=== PATIENT | male | born 1950 | race Caucasian/White ===

== ENCOUNTER 2018-04-27 22:27 | Emergency (ER) | payer MEDICARE, OTHER ==
--- NOTE | 2018-04-27 23:01 | EDM.PDOC ---
ED HPI GENERAL MEDICAL PROBLEM - General Chief Complaint: Lower Extremity Injury/Pain Stated Complaint: left foot injury Time Seen by Provider: 04/27/18 22:45 Source of Information: Reports: Patient History Limitations: Reports: No Limitations - History of Present Illness INITIAL COMMENTS - FREE TEXT/NARRATIVE: 67 YO WM presents to ER complaining of left foot pain after injuring his foot when a cow fell on him. Pt reports he was wearing rubber boots at the time. Pt reports he felt pain immediately but was able to weight bear on the left leg and ambulate with moderate pain. Pt with swelling and bruising to foot. Pt denies any ankle or leg pain. Pt denies any other injury. 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 - Related Data Allergies Allergy/AdvReac Type Severity Reaction Status Date / Time morphine Allergy Nausea and Verified 01/07/18 08:56 Vomiting Home Meds: Home Meds Fish Oil/[place]-3 Fatty Acids [Fish Oil 1,000 MG] 1,000 mg PO DAILY 01/07/18 [ History] Lutein/Minerals/Vit A,C & E [Ocuvite] 1 tab PO DAILY 01/07/18 [History] Glucosamine/D3/Boswellia Anuradha [Osteo Bi-Flex Tablet] 1 each PO DAILY 04/27/18 [ History] Past Medical History HEENT History: Reports: Glaucoma, Impaired Vision Genitourinary History: Reports: Renal Calculus Musculoskeletal History: Reports: Arthritis - Infectious Disease History Infectious Disease History: Reports: Chicken Pox, Measles, Mumps - Past Surgical History HEENT Surgical History: Reports: Adenoidectomy, Naso-Sinus Surgery, Tonsillectomy GI Surgical History: Reports: Appendectomy Musculoskeletal Surgical History: Reports: Other (See Below) Other Musculoskeletal Surgeries/Procedures:: knee surgery in 1970 Social & Family History - Family History Family Medical History: Noncontributory - Tobacco Use Smoking Status *Q: Never Smoker Second Hand Smoke Exposure: No - Caffeine Use Caffeine Use: Reports: Soda - Recreational Drug Use Recreational Drug Use: No Review of Systems - Review of Systems Review Of Systems: See Below Constitutional: Reports: No Symptoms Eyes: Reports: No Symptoms Ears: Reports: No Symptoms Nose: Reports: No Symptoms Mouth/Throat: Reports: No Symptoms Respiratory: Reports: No Symptoms Cardiovascular: Reports: No Symptoms GI/Abdominal: Reports: No Symptoms Genitourinary: Reports: No Symptoms Musculoskeletal: Reports: Foot Pain Skin: Reports: Bruising Neurological: Reports: No Symptoms Psychiatric: Reports: No Symptoms ED EXAM, GENERAL - Physical Exam Exam: See Below Exam Limited By: No Limitations General Appearance: Alert, WD/WN, No Apparent Distress Nose: Normal Inspection, Normal Mucosa, No Blood Throat/Mouth: Normal Inspection, Normal Lips, Normal Teeth, Normal Gums, Normal Oropharynx, Normal Voice, No Airway Compromise Head: Atraumatic, Normocephalic Neck: Normal Inspection, Supple, Non-Tender, Full Range of Motion Respiratory/Chest: No Respiratory Distress, Lungs Clear, Normal Breath Sounds, No Accessory Muscle Use, Chest Non-Tender Cardiovascular: Normal Peripheral Pulses, Regular Rate, Rhythm, No Edema, No Gallop, No JVD, No Murmur, No Rub GI/Abdominal: Normal Bowel Sounds, Soft, Non-Tender, No Organomegaly, No Distention, No Abnormal Bruit, No Mass Back Exam: Normal Inspection, Full Range of Motion, NT Extremities: No Pedal Edema, Normal Capillary Refill, Other (pain, swelling, echymosis to left forefoot) Neurological: Alert, Oriented, CN II-XII Intact, Normal Cognition, Normal Gait, Normal Reflexes, No Motor/Sensory Deficits Psychiatric: Normal Affect, Normal Mood Course - Vital Signs Last Recorded V/S: Last Vital Signs Temp 36.8 C 04/27/18 22:34 Pulse 71 04/27/18 22:34 Resp 18 04/27/18 22:34 BP 144/82 H 04/27/18 22:34 Pulse Ox 95 04/27/18 22:34 - Orders/Labs/Meds Orders: Active Orders 24 hr Category Date Time Status Immobilizer [RC] ASDIRECTED Care 04/27/18 23:03 Ordered Ankle 2V Lt [CR] Stat Exams 04/27/18 22:40 Ordered Foot 2V Lt [CR] Stat Exams 04/27/18 22:39 Ordered - Radiology Interpretation Free Text/Narrative:: left ankle- NAD left foot- NAD Departure - Departure Time of Disposition: 23:10 Disposition: Home, Self-Care 01 Condition: Good Clinical Impression: Contusion of foot, left Qualifiers: Encounter type: initial encounter Qualified Code(s): S90.32XA - Contusion of left foot, initial encounter - Discharge Information Instructions: Foot Contusion Referrals: Mansi Cisneros MD [Physician] - Forms: ED Department Discharge Additional Instructions: 1. discharge home 2. rest/ice/elevation/immobilizer/crutches 3. motrin 600mg PO Q6 4. follow up with PCP for further evaluation and treatment 5. return to ER for worsening symptoms - My Orders Last 24 Hours: My Active Orders 04/27/18 22:39 Foot 2V Lt [CR] Stat 04/27/18 22:40 Ankle 2V Lt [CR] Stat 04/27/18 23:03 Immobilizer [RC] ASDIRECTED - Assessment/Plan Last 24 Hours: My Active Orders 04/27/18 22:39 Foot 2V Lt [CR] Stat 04/27/18 22:40 Ankle 2V Lt [CR] Stat 04/27/18 23:03 Immobilizer [RC] ASDIRECTED Assessment:: 1. left foot contusion Plan: 1. discharge home 2. rest/ice/elevation/immobilizer/crutches 3. motrin 600mg PO Q6 4. follow up with PCP for further evaluation and treatment 5. return to ER for worsening symptoms
--- NOTE | 2018-04-28 05:06 | CR ---
[id number] RAD/RAD Foot Left 2V; 7090-6000 RAD/RAD Ankle Left 2V Exam: RAD Ankle Left 2V, RAD Foot Left 2V Indication:INJURED BY COW Comparison: No prior imaging for comparison. Discussion: Bones are in normal alignment. Negative for fracture. Mild tibiotalar osteoarthritis. Vascular calcifications project over the soft tissues. Impression: No acute findings. Rubens Santos MD 04/28/18 0505 Thank you for allowing us to participate in the care of your patient.
== END 2018-04-27 23:30 | disposition home or self-care (01) ==
LOC: KA.ED 22:27
DX: S90.32XA Contusion of left foot, initial encounter (principal); Z88.5 Allergy status to narcotic agent; W01.0XXA Fall on same level from slipping, tripping and stumbling without subsequent striking against object, initial encounter
CPT/HCPCS: 73600-LT; 73620-LT; 99283; 99283-25

== ENCOUNTER 2019-12-01 22:23 | Emergency (ER) | payer MEDICARE, OTHER ==
--- NOTE | 2019-12-01 22:25 | EDM.PDOC ---
ED HPI GENERAL MEDICAL PROBLEM - General Chief Complaint: Chest Pain Stated Complaint: PAIN Time Seen by Provider: 12/01/19 22:24 Source of Information: Reports: Patient History Limitations: Reports: No Limitations - History of Present Illness INITIAL COMMENTS - FREE TEXT/NARRATIVE: Armando, 69-year-old male, presents with left side rib discomfort. 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 Today pain seems to be catching in nature with respiratory and movement, left posterior and anterior lower rib margins. States his daughter examined him and felt he had a displaced rib. Used oxycodone that he had leftover from a prescription for when he had renal lithiasis. States pain has improved since taking the medication but still feels a pressure with motion. Denies fever chills shortness of breath. 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 States rough roads bouncing in the cab and other contributing factors none of which are specific for the onset of pain or injury. Onset Date: 11/30/19 Duration: Day(s):, Colic, Getting Worse Location: Reports: Chest Quality: Reports: Pressure, Stabbing Severity: Moderate Improves with: Reports: Medication (oxycodone) Worsens with: Reports: Movement Context: Reports: Activity Associated Symptoms: Reports: No Other Symptoms Left Middle Back Pain Score (Numeric/FACES): 7 - Related Data Allergies Allergy/AdvReac Type Severity Reaction Status Date / Time morphine Allergy Nausea and Verified 12/01/19 22:25 Vomiting Home Meds: Home Meds Fish Oil/[place]-3 Fatty Acids [Fish Oil 1,000 MG] 1,000 mg PO DAILY 01/07/18 [History] Lutein/Minerals/Vit A,C & E [Ocuvite] 1 tab PO DAILY 01/07/18 [History] Glucosamine/D3/Boswellia Anuradha [Osteo Bi-Flex Tablet] 1 each PO DAILY 04/27/18 [History] lisinopriL [Lisinopril] 20 mg PO DAILY 12/01/19 [History] Past Medical History HEENT History: Reports: Glaucoma, Impaired Vision Cardiovascular History: Reports: Hypertension Genitourinary History: Reports: Renal Calculus Musculoskeletal History: Reports: Arthritis - Infectious Disease History Infectious Disease History: Reports: Chicken Pox, Measles, Mumps - Past Surgical History HEENT Surgical History: Reports: Adenoidectomy, Naso-Sinus Surgery, Tonsillectomy GI Surgical History: Reports: Appendectomy Musculoskeletal Surgical History: Reports: Other (See Below) Other Musculoskeletal Surgeries/Procedures:: knee surgery in 1969 Social & Family History - Family History Family Medical History: Noncontributory - Tobacco Use Tobacco Use Status *Q: Never Tobacco User Tobacco Use Within Last Twelve Months: No - Caffeine Use Caffeine Use: Reports: Soda ED ROS GENERAL - Review of Systems Review Of Systems: See Below Constitutional: Reports: No Symptoms HEENT: Reports: No Symptoms Respiratory: Reports: No Symptoms. Denies: Shortness of Breath Cardiovascular: Reports: Chest Pain (Rib/chest wall type pain), Other (Rib pain) Endocrine: Reports: No Symptoms GI/Abdominal: Reports: No Symptoms : Reports: No Symptoms Musculoskeletal: Reports: Other (Chest wall discomfort) Skin: Reports: No Symptoms Neurological: Reports: No Symptoms Psychiatric: Reports: No Symptoms Hematologic/Lymphatic: Reports: No Symptoms Immunologic: Reports: No Symptoms ED EXAM, GENERAL - Physical Exam Exam: See Below General Appearance: Alert, WD/WN, No Apparent Distress Ears: Normal External Exam, Normal Canal, Hearing Grossly Normal, Normal TMs Nose: Normal Inspection, Normal Mucosa, No Blood Throat/Mouth: Normal Inspection, Normal Lips, Normal Teeth, Normal Gums, Normal Oropharynx, Normal Voice, No Airway Compromise Head: Atraumatic, Normocephalic Neck: Normal Inspection, Supple, Non-Tender, Full Range of Motion Respiratory/Chest: No Respiratory Distress, Lungs Clear, Normal Breath Sounds, No Accessory Muscle Use. No: Chest Non-Tender (Tenderness is noted to the left posterior and also mild anterior lower rib margin. States he feels this with deep breath as well as positioning.) Cardiovascular: Normal Peripheral Pulses, Regular Rate, Rhythm, No Edema, No Gallop, No JVD, No Murmur, No Rub GI/Abdominal: Normal Bowel Sounds, Soft, Non-Tender, No Organomegaly, No Distention, No Abnormal Bruit, No Mass (Male) Exam: Deferred Rectal (Males) Exam: Deferred Back Exam: No: CVA Tenderness (L), CVA Tenderness (R), Paraspinal Tenderness Extremities: Normal Inspection, Normal Range of Motion, Non-Tender Neurological: Alert, Oriented, CN II-XII Intact, Normal Cognition, Normal Gait, Normal Reflexes, No Motor/Sensory Deficits Psychiatric: Normal Affect, Normal Mood Skin Exam: Warm, Dry, Intact, Normal Color, No Rash Course - Vital Signs Last Recorded V/S: Last Vital Signs Temp 36.4 C 12/01/19 22:25 Pulse 95 12/01/19 22:25 Resp 18 12/01/19 22:25 BP 129/89 12/01/19 22:25 Pulse Ox 91 L 12/01/19 22:25 - Orders/Labs/Meds Orders: Active Orders 24 hr Category Date Time Status Ribs 2V w Chest Lt [CR] Stat Exams 12/01/19 22:29 Ordered Meds: Medications Discontinued Medications Generic Name Dose Route Start Last Admin Trade Name Shobha PRN Reason Stop Dose Admin Ketorolac Tromethamine 60 mg 12/01/19 22:29 12/01/19 22:33 Toradol IM 12/01/19 22:30 60 mg ONETIME ONE Administration - Radiology Interpretation Free Text/Narrative:: Chest x-ray shows no evidence of hemo-/pneumothorax. Poor inspiration as would be expected secondary of his catching type pain on deep inspiration. I do not see any rib fracture or significant dislocation. Radiology over read is pending at this time. - Re-Assessments/Exams Free Text/Narrative Re-Assessment/Exam: 12/01/19 23:11 Significant improvement with the Toradol in conjunction with the oxycodone he had taken prior to his arrival. Discussed waiting for official radiology report which he declines states we can call if any abnormalities were found. Departure - Departure Time of Disposition: 23:04 Disposition: Home, Self-Care 01 Condition: Good Clinical Impression: Acute chest wall pain - Discharge Information *PRESCRIPTION DRUG MONITORING PROGRAM REVIEWED*: Not Applicable *COPY OF PRESCRIPTION DRUG MONITORING REPORT IN PATIENT LUPE: Not Applicable Instructions: Nonspecific Chest Pain, Adult, [id number] Referrals: Julianna Chase [facility] [facility] [Primary Care Provider] - Forms: ED Department Discharge Additional Instructions: I see no abnormality or fracture on your chest x-ray rib views. Continue taking your medication for pain as needed. The shot/injection that we gave you will last until tomorrow morning. Tomorrow you may take ibuprofen as well as oxycodone as needed. Contact your chiropractor in the morning for manipulation adjustment of the ribs. Take all of your regular medications as directed. Increase your water intake is much as possible. Heat and/or ice to the affected area may benefit, specifically heat to get the muscles to relax. You may take ibuprofen and/or Tylenol upon awakening. Call or return if severe pain develops limiting your ability for breathing causing shortness of breath or unbearable discomfort. Follow-up with your clinic as needed. Sepsis Event Note (ED) - Focused Exam Vital Signs: Vital Signs Temp Pulse Resp BP Pulse Ox 12/01/19 22:25 36.4 C 95 18 129/89 91 L - Problem List & Annotations (1) Acute chest wall pain SNOMED Code(s): 790780245, 912742472 Code(s): R07.89 - OTHER CHEST PAIN Status: Acute Priority: High Current Visit: Yes Onset Date: ~11/30/19 Annotation/Comment:: States is improved slightly with the use of oxycodone prior to his arrival. - Problem List Review Problem List Initiated/Reviewed/Updated: Yes - My Orders Last 24 Hours: My Active Orders 12/01/19 22:29 Ribs 2V w Chest Lt [CR] Stat - Assessment/Plan Last 24 Hours: My Active Orders 12/01/19 22:29 Ribs 2V w Chest Lt [CR] Stat Plan: I see no abnormality or fracture on your chest x-ray rib views. Continue taking your medication for pain as needed. The shot/injection that we gave you will last until tomorrow morning. Tomorrow you may take ibuprofen as well as oxycodone as needed. Contact your chiropractor in the morning for manipulation adjustment of the ribs. Take all of your regular medications as directed. Increase your water intake is much as possible. Heat and/or ice to the affected area may benefit, specifically heat to get the muscles to relax. You may take ibuprofen and/or Tylenol upon awakening. Call or return if severe pain develops limiting your ability for breathing causing shortness of breath or unbearable discomfort. Follow-up with your clinic as needed.
[2019-12-01] MEDS ORDERED: Ketorolac 60 MG/2 ML SDV IM ONE (22:29)
--- NOTE | 2019-12-02 09:01 | CR ---
[id number] RAD/RAD Ribs Left W PA Chest Exam: Left rib series Clinical Data: LEFT RIB PAIN COMPARISON: NO PREVIOUS SIMILAR EXAM IS AVAILABLE FINDINGS: No fractures are seen There is bibasilar discoid atelectasis There is minimal pleural reaction on the left There is no infiltrate otherwise The cardiac silhouette is enlarged The aorta is tortuous The mediastinum is prominent IMPRESSION: NO RECENT RIB FRACTURES BIBASILAR DISCOID ATELECTASIS PROMINENT MEDIASTINUM CONSIDER FOLLOW-UP STUDIES Morales Hansen MD 12/02/19 0900 Thank you for allowing us to participate in the care of your patient.
== END 2019-12-01 23:10 | disposition home or self-care (01) ==
LOC: KA.ED 22:23
DX: R07.89 Other chest pain (principal); I10 Essential (primary) hypertension; Z88.5 Allergy status to narcotic agent; Z90.49 Acquired absence of other specified parts of digestive tract; Z79.899 Other long term (current) drug therapy
CPT/HCPCS: 71101-LT; 96372; 99283; 99284; J1885

== ENCOUNTER 2020-03-17 16:50 | Observation (INO) | payer MEDICARE, OTHER ==
[2020-03-17] MEDS ORDERED: Heparin Sodium/D5W 250 ML IV SCH ×2 (17:15→18:01)
[2020-03-17] MEDS ORDERED: Acetaminophen 325 MG Tab PO PRN (17:24)
[2020-03-17] MEDS ORDERED: Sodium Chloride 0.9% 10 ML Syringe FLUSH PRN (17:24)
[2020-03-17] MEDS ORDERED: Heparin Sodium 5,000 Units/ML Vial IVPUSH ONE (18:50)
[2020-03-18] MEDS ORDERED: Lisinopril 20 MG Tab PO SCH (09:00)
--- NOTE | 2020-03-19 00:30 | PCM.DCSUM1 ---
Discharge Summary - Hospital Course Free Text/Narrative:: Date of admission: 03/17/20 Date of discharge: 03/18/20 Admission diagnoses: # DVT, RLE # Leukocytosis # HTN Discharge diagnoses: # DVT, RLE # Leukocytosis # HTN Hospital course: Mr. Jackman is a 69yoM with a history of HTN who developed RLE swelling and pain on 03/15/20. He remembered taking a "funny step" on 03/13/20, but continued to be active and without any pain until over 2 days later. He was evaluated at [facility] by SANTA Garibay, and found to have extensive DVT of the RLE. Had no other history fitting with a DVT provoking event and hypercoagulable workup obtained. Due to extensive clot burden, he was admitted for close observation and placed on heparin anticoagulation. He declined need for any analgesics for pain management, developed no evidence of infection, and felt comfortable going home on the day of discharge. Discussed underlying etiology differential diagnosis and management for unprovoked DVTs, for which he agreed to initiate anticoagulation with rivaroxaban for which risks and benefits were discussed; specifically discussed the need for avoidance of NSAIDs when on anticoagulation. Discussed at length conservative measures for treatment as well as return precautions for any cardiorespiratory symptoms. Discharge and follow-up recommendations: - Discharge to home - Medication changes at discharge: - Start rivaroxaban 15mg BID x21 days, and then 20mg daily - Follow-up with PCP SANTA Moreno at [facility] in 7-9 days - Recommend recheck of CBC at follow-up - Consider referral to hematology for evaluation and opinion regarding length of anticoagulation - Pending results: hypercoagulable labs in [place] chart - Discharge Data Discharge Date: 03/18/20 Discharge Disposition: Home, Self-Care 01 Condition: Good - Referral to Home Health Primary Care Physician: Julianna Chase NP - Patient Instructions Diet: Usual Diet as Tolerated Activity: As Tolerated, Elevate Extremity Notify Provider of: Fever, Increased Pain, Swelling and Redness - Discharge Plan *PRESCRIPTION DRUG MONITORING PROGRAM REVIEWED*: Not Applicable *COPY OF PRESCRIPTION DRUG MONITORING REPORT IN PATIENT LUPE: Not Applicable Prescriptions/Med Rec: Rivaroxaban [Xarelto] 1 each PO BID 21 Days tab.ds.pk Home Medications: Home Meds Fish Oil/[place]-3 Fatty Acids [Fish Oil 1,000 MG] 1,000 mg PO BID 01/07/18 [History] Glucosamine/D3/Boswellia Anuradha [Osteo Bi-Flex Tablet] 1 each PO BID 04/27/18 [History] lisinopriL [Lisinopril] 20 mg PO DAILY 12/01/19 [History] Fluticasone Propionate [Flonase] 1 spray NASBOTH BID PRN 03/17/20 [History] Multivitamin with Minerals [Multivitamins with Minerals] 1 tab PO BID 03/17/20 [History] Acetaminophen [Tylenol] 650 mg PO Q4H PRN tablet 03/18/20 [Rx] Rivaroxaban [Xarelto] 1 each PO BID 21 Days tab.ds.pk 03/18/20 [Rx] Patient Handouts: Deep Vein Thrombosis Referrals: Julianna Chase [facility] [Primary Care Provider] - 03/26/20 2:00 pm - Discharge Summary/Plan Comment DC Time >30 min.: Yes - General Info Subjective Update: Overall feeling well. RLE with pain upon initial ambulation, but then improves. Elevation and compression has helped. Denies any cardiorespiratory symptoms. Eating, voiding, and stooling without difficulty. Desires discharge. - Patient Data Vitals - Most Recent: Last Vital Signs Temp 37.2 C 03/18/20 10:56 Pulse 82 03/18/20 12:11 Resp 16 03/18/20 10:56 BP 109/71 03/18/20 10:56 Pulse Ox 95 03/18/20 12:11 Weight - Most Recent: 80.921 kg I&O - Last 24 hours: Intake & Output 03/18/20 03/18/20 03/19/20 14:59 22:59 06:59 Intake Total 481 Balance 481 Lab Results - Last 24 hrs: Laboratory Results - last 24 hr 03/17/20 03/17/20 03/18/20 Range/Units 11:56 18:00 06:30 APTT 69.1 H* 29.1 D 69.7 H* D (22.8-31.4) SEC Med Orders - Current: Current Medications Discontinued Medications Acetaminophen (Tylenol) 650 mg PO Q4H PRN PRN Reason: Pain (Mild 1-3)/fever Last Admin: 03/18/20 01:04 Dose: 650 mg Documented by: Heparin Sodium (Porcine) (Heparin Sodium) 5,000 units IVPUSH ONETIME ONE Stop: 03/17/20 18:51 Last Admin: 03/17/20 17:50 Dose: 5,000 units Documented by: Heparin Sodium/Dextrose () 250 mls @ 0 mls/hr IV TITRATE GERMAN; Protocol Heparin Sodium/Dextrose () 250 mls @ 13 mls/hr IV TITRATE GERMAN; Protocol Last Admin: 03/17/20 18:45 Dose: 1,300 units/hr, 13 mls/hr Documented by: Lisinopril (Prinivil) 20 mg PO DAILY [facility] Last Admin: 03/18/20 08:12 Dose: 20 mg Documented by: Sodium Chloride (Saline Flush) 10 ml FLUSH Q8HR PRN PRN Reason: keep vein open - Exam Physical Findings Comments:: GENERAL: Well-appearing male sitting in bedside chair in no acute distress. HEENT: Normocephalic, atraumatic. Conjunctiva clear. NECK: Supple, no masses. CV: Regular rate and rhythm, no murmurs, rubs, or gallops. 2+ radial, DP/PT pulses. PULMONARY: Normal effort, clear to auscultation bilaterally, no wheezes, rales, or rhonchi. ABDOMEN: Positive bowel sounds, soft, nontender, nondistended. EXTREMITIES: RLE with mild edema of the leg and distal thigh without skin breakdown or rash but with tenderness to palpation especially of the calf. MUSCULOSKELETAL: Moves all extremities well. NEUROLOGICAL: No obvious deficits. DERMATOLOGIC: No rashes or suspicious lesions in exposed areas. PSYCHIATRIC: Alert, interactive, appropriate affect.
== END 2020-03-18 13:30 | disposition home or self-care (01) ==
LOC: KA.MS 17:20
PROVIDERS: ADMIT Nurse Practitioner Family; ATTEND Family Medicine
DX: I82.401 Acute embolism and thrombosis of unspecified deep veins of right lower extremity (principal); D72.829 Elevated white blood cell count, unspecified; I10 Essential (primary) hypertension; Z79.899 Other long term (current) drug therapy; Z88.5 Allergy status to narcotic agent; Z20.822 Contact with and (suspected) exposure to COVID-19
CPT/HCPCS: 36415; 85730; 96365; 96366; 96375; A9270-GY; G0378; J1644; U0002

== ENCOUNTER 2020-12-26 14:45 | Emergency (ER) | payer MEDICARE, OTHER ==
[2020-12-26] MEDS ORDERED: Ketorolac 30 MG/ML SDV ONE (15:49)
[2020-12-26] MEDS ORDERED: Ketorolac 30 MG/ML SDV IVPUSH ONE (16:05)
--- NOTE | 2020-12-26 16:48 | EDM.PDOC ---
ED HPI GENERAL MEDICAL PROBLEM - General Chief Complaint: General Stated Complaint: back pain Time Seen by Provider: 12/26/20 15:23 Source of Information: Reports: Patient, Family (dtr) History Limitations: Reports: No Limitations - History of Present Illness INITIAL COMMENTS - FREE TEXT/NARRATIVE: Patient presents with right flank pain extending to RLQ and right testicle. He says it feels like a kidney stone he had 3 years ago. Pain was 8-9/10 and he took an oxycodone he had left over; pain is now 6/10. Right Flank Pain Score (Numeric/FACES): 8 - Related Data Allergies Allergy/AdvReac Type Severity Reaction Status Date / Time morphine Allergy Nausea and Verified 03/17/20 17:42 Vomiting Home Meds: Home Meds Fish Oil/Ubly-3 Fatty Acids [Fish Oil 1,000 MG] 1,000 mg PO BID 01/07/18 [History] Glucosamine/D3/Boswellia Anuradha [Osteo Bi-Flex Tablet] 1 each PO BID 04/27/18 [History] lisinopriL [Lisinopril] 20 mg PO DAILY 12/01/19 [History] Fluticasone Propionate [Flonase] 1 spray NASBOTH BID PRN 03/17/20 [History] Multivitamin with Minerals [Multivitamins with Minerals] 1 tab PO BID 03/17/20 [History] Acetaminophen [Tylenol] 650 mg PO Q4H PRN tablet 03/18/20 [Rx] Past Medical History HEENT History: Reports: Glaucoma, Impaired Vision Cardiovascular History: Reports: Hypertension Genitourinary History: Reports: Renal Calculus Musculoskeletal History: Reports: Arthritis - Infectious Disease History Infectious Disease History: Reports: Chicken Pox, Measles, Mumps - Past Surgical History HEENT Surgical History: Reports: Adenoidectomy, Naso-Sinus Surgery, Tonsillectomy GI Surgical History: Reports: Appendectomy Musculoskeletal Surgical History: Reports: Other (See Below) Other Musculoskeletal Surgeries/Procedures:: knee surgery in 1970 Social & Family History - Family History Family Medical History: No Pertinent Family History - Tobacco Use Tobacco Use Status *Q: Never Tobacco User Second Hand Smoke Exposure: No - Caffeine Use Caffeine Use: Reports: Soda - Recreational Drug Use Recreational Drug Use: No ED ROS GENERAL - Review of Systems Review Of Systems: See Below Constitutional: Denies: Fever, Chills, Malaise, Weakness HEENT: Denies: Ear Pain, Throat Pain, Vision Change Respiratory: Denies: Shortness of Breath, Cough Cardiovascular: Denies: Chest Pain, Lightheadedness, Syncope Endocrine: Denies: Fatigue GI/Abdominal: Reports: Abdominal Pain. Denies: Constipation, Diarrhea, Vomiting : Denies: Dysuria, Flank Pain, Hematuria Musculoskeletal: Denies: Neck Pain, Shoulder Pain, Arm Pain Skin: Denies: Cyanosis, Jaundice, Mottled, Pallor, Diaphoresis Neurological: Denies: Confusion, Dizziness, Headache, Seizure, Syncope, Trouble Speaking, Difficulty Walking Psychiatric: Denies: Agitation, Anxiety, Confusion ED EXAM, GENERAL - Physical Exam Exam: See Below Exam Limited By: No Limitations General Appearance: Alert, WD/WN, No Apparent Distress Eye Exam: Bilateral Eye: EOMI, Normal Inspection, PERRL Ears: Normal External Exam, Hearing Grossly Normal Nose: Normal Inspection, No Blood Throat/Mouth: Normal Inspection, Normal Lips, Normal Voice, No Airway Compromise Head: Atraumatic, Normocephalic Neck: Normal Inspection, Full Range of Motion Respiratory/Chest: No Respiratory Distress, Lungs Clear, Normal Breath Sounds, No Accessory Muscle Use Cardiovascular: Regular Rate, Rhythm, No Murmur GI/Abdominal: Soft, No Organomegaly, No Distention, Tender (RUQ). No: Guarding, Rigid Back Exam: Normal Inspection, Full Range of Motion, CVA Tenderness (R). No: CVA Tenderness (L) Extremities: Normal Inspection, Normal Range of Motion Neurological: Alert, Oriented, Normal Cognition, No Motor/Sensory Deficits Psychiatric: Normal Affect, Normal Mood Skin Exam: Warm, Dry, Intact, Normal Color, No Rash Course - Vital Signs Last Recorded V/S: Last Vital Signs Temp 97.8 F 12/26/20 16:29 Pulse 73 12/26/20 16:29 Resp 22 H 12/26/20 16:29 BP 148/99 H 12/26/20 16:29 Pulse Ox 96 12/26/20 16:29 - Orders/Labs/Meds Labs: Laboratory Tests 12/26/20 12/26/20 12/26/20 Range/Units 15:45 16:33 16:33 WBC 9.92 (5.00-10.00) 10^3/uL RBC 5.47 (4.50-6.00) 10^6/uL Hgb 15.5 (13.0-17.0) g/dL Hct 47.0 (40.0-52.0) % MCV 85.9 (82.0-92.0) fL MCH 28.3 (27.0-31.0) pg MCHC 33.0 (32.0-36.0) g/dL RDW 13.4 (11.5-14.5) % Plt Count 216 (150-400) 10^3/uL MPV 10.8 H (7.4-10.4) fL Immature Gran % (Auto) 0.2 (0.0-5.0) % Neut % (Auto) 79.2 H (50.0-70.0) % Lymph % (Auto) 12.1 L (20.0-40.0) % Cedar % (Auto) 7.1 (2.0-8.0) % Eos % (Auto) 0.9 L (1.0-3.0) % Baso % (Auto) 0.5 (0.0-1.0) % Neut # (Auto) 7.86 H (2.50-7.00) 10^3/uL Lymph # (Auto) 1.20 (1.00-4.00) 10^3/uL Cedar # (Auto) 0.70 (0.10-0.80) 10^3/uL Eos # (Auto) 0.09 L (0.10-0.30) 10^3/uL Baso # (Auto) 0.05 (0.00-0.10) 10^3/uL Immature Gran # (Auto) 0.02 (0.00-0.50) 10^3/uL Sodium 144 (136-145) mmol/L Potassium 4.0 (3.5-5.1) mmol/L Chloride 106 (98-107) mmol/L Carbon Dioxide 23.6 (21.0-32.0) mmol/L Anion Gap 18.4 H (5-15) mmol/L BUN 19 H (7-18) mg/dL Creatinine 1.45 H (0.51-1.17) mg/dL Est Cr Clr Drug Dosing 49.65 mL/min Estimated GFR (MDRD) 48 mL/min Glucose 113 (70-140) mg/dL Calcium 9.2 (8.7-10.3) mg/dL Total Bilirubin 0.5 (0.2-1.0) mg/dL AST 20 (15-37) U/L ALT 31 (14-63) U/L Alkaline Phosphatase 76 (46-116) U/L Total Protein 7.2 (6.4-8.2) g/dL Albumin 3.47 (3.40-5.00) g/dL Specimen Type Urinvoid Urine Color Yellow (YELLOW) Urine Appearance Clear (CLEAR) Urine pH 5.0 (5.0-9.0) Ur Specific Matthews >= 1.030 (1.005-1.030) Urine Protein Negative (NEGATIVE) mg/dL Urine Glucose (UA) Negative (NEGATIVE) mg/dL Urine Ketones Negative (NEGATIVE) mg/dL Urine Occult Blood Negative (NEGATIVE) Urine Nitrite Negative (NEGATIVE) Urine Bilirubin Negative (NEGATIVE) Urine Urobilinogen 0.2 (0.2-1.0) E.U./dL Ur Leukocyte Esterase Negative (NEGATIVE) Meds: Medications Discontinued Medications Generic Name Dose Route Start Last Admin Trade Name Freq PRN Reason Stop Dose Admin Ketorolac Tromethamine Confirm 12/26/20 15:49 12/26/20 16:23 Ketorolac 30 Mg/Ml Sdv Administered 12/26/20 15:50 Not Given Dose 30 mg .ROUTE .STK-MED ONE Ketorolac Tromethamine 30 mg 12/26/20 16:05 12/26/20 16:05 Ketorolac 30 Mg/Ml Sdv IVPUSH 12/26/20 16:06 30 mg ONETIME ONE Administration Tamsulosin HCl 0.8 mg 12/26/20 17:18 12/26/20 17:24 Tamsulosin 0.4 Mg Cap.Er PO 12/26/20 17:19 0.8 mg ONETIME ONE Administration - Re-Assessments/Exams Free Text/Narrative Re-Assessment/Exam: 12/26/20 17:25 CT shows 7 mm stone in right distal ureter, right hydronephrosis, as well as smaller nephrolithiasis on left. No blood in urine; UA normal. CBC and BMP normal. Discussed findings and treatment plan with patient. I feel this will likely pass since his last one was similar in size and passed fairly easily with the alpha chemo. I also discussed the parenchymal scar in the left lung base that has changed some since comparison in 2018 and should be recheck with PCP in 6 months. Small gallstone also. Pt discharged to home in stable condition. 12/26/20 17:32 Instructions were incorrect for Tamsulosin: I wrote .04 instead of 0.4 which is corrected with patient but I couldn't change it in the order. Departure - Departure Time of Disposition: 17:22 Disposition: Home, Self-Care 01 Condition: Good Clinical Impression: Ureteral calculus, right, Hydronephrosis concurrent with and due to calculi of kidney and ureter - Discharge Information Referrals: Julianna Chase PULMONARY CARE NURSE [Primary Care Provider] - Forms: ED Department Discharge Additional Instructions: Drink 8 cups of water daily. Take the Tamsulosin daily as directed. You can take Ibuprofen 600 mg three times daily as needed for pain. You can take Oxycodone for worse pain as directed. Follow up with your PCP in a week if nothing has improved or passed. If worsening, recheck in clinic or ER as needed. Sepsis Event Note (ED) - Evaluation Sepsis Screening Result: No Definite Risk - Focused Exam Vital Signs: Vital Signs Temp Pulse Resp BP Pulse Ox 12/26/20 16:29 97.8 F 73 22 H 148/99 H 96 12/26/20 15:09 97.5 F 74 22 H 146/95 H 94 L
[2020-12-26 17:04] LABS: ANION GAP 18.4 mmol/L (5-15)
[2020-12-26] MEDS ORDERED: Tamsulosin 0.4 MG Cap.ER PO ONE (17:18)
--- NOTE | 2020-12-28 10:04 | CT ---
[id number] CT/CT Abdomen Pelvis WO IV Exam: CT Abdomen Pelvis WO IV Clinical Data: FLANK PAIN COMPARISON: CORRELATION IS MADE WITH THE CAT SCAN OF JANUARY 07, 2018 FINDINGS: There is minimal parenchymal scar at the left lung base appearing different than the last exam Consider perhaps a 6 month follow-up limited plain CT chest A 7 mm radiopaque distal right ureteral calculus is seen This results in significant right-sided hydronephrosis There is minimal nephrolithiasis of the left kidney Previously the right ureteral calculus was in the right kidney. Additionally there appears to be a tiny gallstone. The liver and spleen, adrenals, aorta, and pancreas otherwise are unremarkable The pelvis shows no mass or adenopathy IMPRESSION: 7 MM OBSTRUCTING DISTAL RIGHT URETERAL CALCULUS MODERATE RIGHT-SIDED HYDRONEPHROSIS Morales Hansen MD 12/28/20 [id number] Thank you for allowing us to participate in the care of your patient.
== END 2020-12-26 17:42 | disposition home or self-care (01) ==
LOC: KA.ED 14:45
DX: N13.2 Hydronephrosis with renal and ureteral calculous obstruction (principal); I10 Essential (primary) hypertension; Z88.5 Allergy status to narcotic agent; Z79.899 Other long term (current) drug therapy
CPT/HCPCS: 36415; 74176; 80053; 81003; 85025; 96374; 99284-25; A9270-GY; J1885

== ENCOUNTER 2021-04-22 05:15 | Emergency (ER) | payer MEDICARE, OTHER ==
[2021-04-22] MEDS ORDERED: HYDROmorphone 1 MG/ML Syringe IVPUSH ONE ×3 (05:35→11:04)
[2021-04-22] MEDS ORDERED: Ondansetron 4 MG/2 ML SDV IVPUSH ONE (05:36)
[2021-04-22] MEDS ORDERED: Ondansetron 4 MG/2 ML SDV ONE (05:38)
[2021-04-22] MEDS ORDERED: LORazepam 2 MG/ML SDV IVPUSH ONE (08:31)
[2021-04-22] MEDS ORDERED: Midazolam 1 MG/ML 2 ML SDV IVPUSH ONE (08:44)
[2021-04-22] MEDS ORDERED: Lidocaine 1% 20 ML MDV ONE (09:12)
[2021-04-22] MEDS ORDERED: Lidocaine 1% 50 ML MDV INJECT ONE (09:21)
[2021-04-22] MEDS ORDERED: HYDROmorphone 1 MG/ML Syringe ONE (09:33)
[2021-04-22] MEDS: HYDROmorphone 1 MG/ML Syringe IVPUSH ONE ×2 (09:36→10:25)
== END 2021-04-22 11:15 ==
LOC: KA.ED 05:15
DX: S43.005A Unspecified dislocation of left shoulder joint, initial encounter (principal); I10 Essential (primary) hypertension; Z88.5 Allergy status to narcotic agent; Z79.899 Other long term (current) drug therapy; W01.0XXA Fall on same level from slipping, tripping and stumbling without subsequent striking against object, initial encounter
CPT/HCPCS: 73030-LT; 73070-LT; 96374; 96375; 96376; 99284; 99284-25; J1170; J2001; J2250; J2405

== ENCOUNTER 2022-09-24 19:24 | Emergency (ER) | payer MEDICARE, OTHER ==
[2022-09-24] MEDS ORDERED: HYDROmorphone 1 MG/ML Syringe ONE (19:41)
[2022-09-24] MEDS ORDERED: Sodium Chloride 0.9% 1,000 ML ONE ×2 (19:41→21:42)
[2022-09-24] MEDS ORDERED: Sodium Chloride 0.9% 1,000 ML IV ONE (19:45)
[2022-09-24] MEDS ORDERED: HYDROmorphone 1 MG/ML Syringe IVPUSH ONE ×3 (19:45→22:10)
[2022-09-24 19:54] LABS: BASOPHILS ABSOLUTE AUTO 0.02 10^3/uL (0.00-0.10); BASOPHILS PERCENT AUTO 0.2 % (0.0-1.0); EOSINOPHILS ABSOLUTE AUTO 0.06 10^3/uL (0.10-0.30); EOSINOPHILS PERCENT AUTO 0.5 % (1.0-3.0); HEMATOCRIT 47.5 % (40.0-52.0); IMMATURE GRAN ABSOLUTE AUTO 0.05 10^3/uL (0.00-0.50); IMMATURE GRAN PERCENT AUTO 0.4 % (0.0-5.0); LYMPHOCYTES ABSOLUTE AUTO 1.44 10^3/uL (1.00-4.00); LYMPHOCYTES PERCENT AUTO 11.7 % (20.0-40.0); MEAN CORPUSCULAR HEMOGLOBIN 29.1 pg (27.0-31.0); MEAN CORPUSCULAR HGB CONC 33.7 g/dL (32.0-36.0); MEAN CORPUSCULAR VOLUME 86.4 fL (82.0-92.0); MEAN PLATELET VOLUME 11.3 fL (7.4-10.4); MONOCYTES ABSOLUTE AUTO 0.96 10^3/uL (0.10-0.80); MONOCYTES PERCENT AUTO 7.8 % (2.0-8.0); NEUTROPHILS ABSOLUTE AUTO 9.74 10^3/uL (2.50-7.00); NEUTROPHILS PERCENT AUTO 79.4 % (50.0-70.0); PLATELET COUNT,PLT 188 10^3/uL (150-400); RED CELL DISTRIBUTION WIDTH 13.7 % (11.5-14.5); WHITE BLOOD CELL COUNT,WBC 12.27 10^3/uL (5.00-10.00)
[2022-09-24] MEDS ORDERED: Iopamidol 755 Mg/ML 100 ML Bottle IV ONE (19:58)
[2022-09-24] MEDS ORDERED: Sodium Chloride 0.9% 50 ML IV SCH (20:00)
[2022-09-24 20:21] LABS: APPEARANCE,URINE CLEAR (CLEAR); BILIRUBIN,URINE NEGATIVE (NEGATIVE); COLOR,URINE YELLOW (YELLOW); GLUCOSE,URINE NEGATIVE (NEGATIVE); KETONES,URINE NEGATIVE (NEGATIVE); LEUKOCYTE ESTERASE,URINE NEGATIVE (NEGATIVE); NITRITE,URINE NEGATIVE (NEGATIVE); OCCULT BLOOD,URINE SMALL (NEGATIVE); PROTEIN,URINE TRACE mg/dL (NEGATIVE); UROBILINOGEN,URINE 0.2 E.U./dL (0.2-1.0)
[2022-09-24 20:24] LABS: BACTERIA,URINE OCCASIONAL /HPF (NONE TO FEW); EPITHELIAL CELLS,URINE RARE /LPF; WBC,URINE 0-5 /HPF (0-5)
[2022-09-24 20:29] LABS: ALBUMIN 3.49 g/dL (3.40-5.00); ANION GAP 13.4 mmol/L (5-15); BILIRUBIN TOTAL 0.9 mg/dL (0.2-1.0); CALCIUM 8.7 mg/dL (8.7-10.3); CARBON DIOXIDE,CO2 29.7 mmol/L (21.0-32.0); CREATININE 1.68 mg/dL (0.51-1.17); EST CRCL DRUG DOSING (CG) 41.64 mL/min; POTASSIUM,K 5.1 mmol/L (3.5-5.1); PROTEIN TOTAL,TP 6.9 g/dL (6.4-8.2)
[2022-09-24] MEDS ORDERED: Ondansetron 4 MG/2 ML SDV ONE (20:58)
[2022-09-24] MEDS ORDERED: Ondansetron 4 MG/2 ML SDV IVPUSH ONE (21:01)
[2022-09-24] MEDS: HYDROmorphone 2 MG/ML Syringe ONE ×2 (21:01→21:44)
[2022-09-24] MEDS ORDERED: Sodium Chloride 0.9% 1,000 ML IV SCH (21:45)
[2022-09-24] MEDS ORDERED: Tamsulosin 0.4 MG Cap.ER ONE (22:03)
[2022-09-24] MEDS ORDERED: Tamsulosin 0.4 MG Cap.ER PO ONE (22:03)
[2022-09-24] MEDS ORDERED: HYDROmorphone 2 MG/ML Syringe ONE (22:13)
== END 2022-09-24 22:17 ==
LOC: KA.ED 19:24
DX: N13.2 Hydronephrosis with renal and ureteral calculous obstruction (principal); D72.828 Other elevated white blood cell count; I10 Essential (primary) hypertension; Z88.5 Allergy status to narcotic agent; Z86.16 Personal history of COVID-19
CPT/HCPCS: 36415; 74178; 80053; 81001; 82150; 83690; 85025; 96361; 96374; 96375; 96376; 99284; 99285-25; A9270-GY; J1170; J2405; J3490; J7030; Q9967